=== PATIENT | female | born 1980 ===

== ENCOUNTER 2024-12-28 05:44 | Emergency (ER) | payer OTHER, SELFPAY ==
[2024-12-28 05:49] VITALS: BP 135/81
[2024-12-28 06:19] VITALS: BP 139/78
[2024-12-28 06:20] VITALS: BMI 37.0
--- NOTE | 2024-12-28 06:49 | ED.GENMED ---
History of Present Illness
<Wallace Modi MD, Resident - Last Filed: 12/28/24 07:19>
General
Chief Complaint: Extremity Pain (non-traumatic)
Source: patient
Time Seen by Provider: 12/28/24 06:17
History of Present Illness
History of Present Illness:
Patient is a 44-year-old female with PMH of diabetes on Mounjaro who presented to the [place] ED for progressive right arm [id number], pain, and weakness. Patient's arm issues started approximately 3 months ago after lifting a box overhead
at work. The numbness, pain, and weakness extends throughout her entire right upper extremity from her neck to her fingertips. The numbness is located in digits 1�3. Symptoms are relieved with pressure on 'trigger points' in her neck, shoulder,
and arm. Symptoms are constant and wake her from sleep, though they are positional in nature and worse with arm and neck movement. Patient indicates the symptoms are worse with use of her mouse at work. Patient has seen a chiropractor and
neuromuscular therapist since onset of symptoms. Patient has taken Tylenol, Aleve, and ibuprofen, which slightly helped symptoms. Patient self medicated prednisone for approximately 5 weeks, starting with 50 mg and tapering down to 12.5 mg before
ultimately stopping approximately 5 weeks ago. Steroids did help her symptoms, but they also remain her 'crazy', which prompted her to stop taking them. Patient is between PCPs right now, though she has an appointment scheduled with Dr. Pearce
in March. Patient states she is anxious and has multiple life stressors lately. Denies fever, fatigue, chills, chest pain, abdominal pain, N/V/D, bowel or bladder dysfunction, gait disturbances, heat or cold intolerance, speech changes, or
vision changes. Patient denies alcohol use, smoking, or drug use. No history of thyroid problems or cancer.
Past History
<Wallaec Modi MD, Resident - Last Filed: 12/28/24 07:19>
Past History
ED Past Medical History: NIDDM and Psychiatric (Anxiety)
Social History
Tobacco: Non-smoker
Alcohol: None
Drug: None
Employment: Employed
Review of Systems
<Wallace Modi MD, Resident - Last Filed: 12/28/24 07:19>
Review of Systems
Constitutional: Reports weight loss (Intentional, on Mounjaro) and sleep disturbance; Denies fever, fatigue or chills
Respiratory: Denies trouble breathing
Cardiac: Denies chest pain
ABD/GI: Reports other (Denies bowel incontinence); Denies abdominal pain, nausea, vomiting or diarrhea
: Denies incontinence
Musculoskeletal: Reports other (RUE paresthesias, pain, weakness)
Neurological: Reports headache (Ocular migraine approximately 5 months ago) and weakness (RUE)
Endocrine: Denies temp intolerance
Psychiatric: Reports anxiety
Phy Exam
<Wallace Modi MD, Resident - Last Filed: 12/28/24 07:19>
Physical Exam
Physical Exam:
General: NAD. Conversant.
MSK: Paresthesias worsened with neck side flexion. Pain with neck extension. RUE partial numbness, most pronounced in the tips of digits 1�3. RUE strength 5/5. Full RUE ROM, though or movement worsens paresthesia.
Neuro: A&O x 3. CN II through XII grossly intact.
Psych: Anxious.
Course
<Wallace Modi MD, Resident - Last Filed: 12/28/24 07:19>
Orders/Labs/Results
Orders:
Orders
12/28/24 06:55
Prednisone [Deltasone] 50 mg PO NOW STA
12/28/24 07:39
Crisis Consult Routine
Reason for Consult: anxiety
Vital Signs
Initial and Last Documented VS:
Initial Vital Signs
Temp Pulse Resp BP Pulse Ox
98.6 F 95 20 135/81 100
12/28/24 05:49 12/28/24 05:49 12/28/24 05:49 12/28/24 05:49 12/28/24 05:49
Last Documented Vital Signs
Temp Pulse Resp BP Pulse Ox
98.6 F 95 20 139/78 99
12/28/24 05:49 12/28/24 05:49 12/28/24 05:49 12/28/24 06:19 12/28/24 07:12
<Chago Boston, DO - Last Filed: 12/28/24 07:40>
Orders/Labs/Results
Orders:
Orders
12/28/24 06:55
Prednisone [Deltasone] 50 mg PO NOW STA
12/28/24 07:39
Crisis Consult Routine
Reason for Consult: anxiety
Vital Signs
Initial and Last Documented VS:
Initial Vital Signs
Temp Pulse Resp BP Pulse Ox
98.6 F 95 20 135/81 100
12/28/24 05:49 12/28/24 05:49 12/28/24 05:49 12/28/24 05:49 12/28/24 05:49
Last Documented Vital Signs
Temp Pulse Resp BP Pulse Ox
98.6 F 95 20 139/78 99
12/28/24 05:49 12/28/24 05:49 12/28/24 05:49 12/28/24 06:19 12/28/24 07:12
<Wallace Modi MD, Resident - Last Filed: 12/28/24 07:19>
MDM/Problems Addressed
Differential Diagnosis Includes:
Cervical radiculopathy
Brachial plexopathy
Peripheral neuropathy
Thoracic outlet syndrome
Stroke/TIA
Multiple sclerosis
Myelopathy
Malignancy
MDM/Problems Addressed:
Assessment: Patient is a 44-year-old female with PMH of diabetes who presented to the [place] ED with approximately 3 months of progressive RUE paresthesias, pain, and weakness sudden onset following lifting of a box overhead at work. The RUE
paresthesias, weakness, and pain are positional in nature, worsened with arm and neck movement, improve with NSAIDs and steroids, and are not associated with any constitutional or other neuro/MSK symptoms. Suspect cervical radiculopathy or brachial
plexopathy.
Plan:
NSAIDs for pain control
Prednisone for inflammation, pain control
Recommended outpatient follow-up with neurosurgery
<Wallace Modi MD, Resident - Last Filed: 12/28/24 07:19>
*Pulse Oximetry
SaO2: 99
Oxygen Mode of Delivery: Room air
Patient hypoxic: no
*Critical Care Note
Total Time (30-74mins, 75-104mins- exclusive of procedures): Not Applicable
ED Attending Note
<Wallace Modi MD, Resident - Last Filed: 12/28/24 07:19>
-
Portions of this chart may have been created with voice recognition software.� Occasional wrong word or��sound alike� substitutions may have occurred due to the inherent limitations of voice recognition software.
<Chago Boston, DO - Last Filed: 12/28/24 07:40>
ED Attending Note
Patient seen and examined by attending physician: Yes
I performed a history and physical exam of patient and discussed management with resident, I reviewed resident's note and agree with documented findings and plan of care.: Yes
ED Attending Note:
Seen with resident examined independently 44-year-old female right upper extremity numbness and tingling, worse with movement started after lifting a box, she used her 's steroid prescription with some relief saw chiropractor told that she
may need an MRI and an EMG,
Discussed with patient and she has been having some mental health issues, requesting some resources, states she was written up by her job for some sort of issues
Discharge Plan
Departure
Patient Disposition: Home (Routine Discharge)
Date of Disposition: 12/28/24
Time of Disposition: 07:23
Patient with high blood pressure during this ER visit?: No
Condition: Good
Discharge Problem:
Radicular pain in right arm
Prescriptions:
New
methylprednisolone [Medrol (Andrés)] 4 mg tablets,dose pack
See Rx Instructions .ROUTE .COMPLEX Qty: 21 0RF
Rx Instructions:
for 6 days
oxycodone-acetaminophen [Percocet] 5-325 mg tablet
1 tab PO Q6HPRN PRN (Reason: pain) Qty: 10 0RF
gabapentin [Neurontin] 100 mg capsule
100 mg PO TID Qty: 30 0RF
Referrals:
Travis Rosen DO [Active, Neurosurgery] - Next open appointment
Moises Pearce MD [Active, Internal Medicine] - Next open appointment
Interventions
Interventions:
*Risk Screen - Suicide Last Done: 12/28/24 05:49
*General Assessment Last Done: 12/28/24 05:49
*Neglect/Abuse Screening Last Done: 12/28/24 05:49
*ED- Fall Risk Assessment Last Done: 12/28/24 05:49
*ED COVID-19 Vaccine History Last Done: 12/28/24 05:49
*ED Influenza Vaccine History Last Done: 12/28/24 05:49
ED-Skin Assessment Last Done: 12/28/24 06:20
ED-Peripheral Vascular Assessment Last Done: 12/28/24 06:26
ED-Musculoskeletal Assessment Last Done: 12/28/24 06:20
Discharge Date and Time
Print Language: JAPANESE
[2024-12-28] MEDS: DELTASONE 50 MG PO (08:07)
[2024-12-28 09:41] VITALS: BP 148/87
== END 2024-12-28 10:01 | disposition home or self-care (01) ==
LOC: EMR 05:44
PROVIDERS: EMERGENCY PHYSICIAN Emergency Medicine
DX: M54.10 Radiculopathy, site unspecified (principal); M79.601 Pain in right arm; E11.9 Type 2 diabetes mellitus without complications; R53.1 Weakness; F41.9 Anxiety disorder, unspecified
CPT/HCPCS: 99282

== ENCOUNTER → 2025-01-15 07:21 | Outpatient (REF) | payer OTHER, SELFPAY | LOC: HWRAD 07:21 | PROVIDERS: FAMILY PHYSICIAN Internal Medicine Geriatric Medicine | DX: M54.12 Radiculopathy, cervical region (principal) | CPT/HCPCS: 72050 ==